=== PATIENT | female | born 1975 | race African-American/Black ===

== ENCOUNTER 2023-02-12 13:03 | Outpatient (REF) | payer OTHER, SELFPAY ==
[2023-02-12 14:35] LABS: Blood Urea Nitrogen 13 mg/dL (9-16); Estimated Glomerular Filt Rate > 60
== END 2023-02-12 13:04 | disposition home or self-care (01) ==
LOC: HO.LAB 13:03
PROVIDERS: PCP Internal Medicine; Visit Provider Psychiatry & Neurology Neurology
DX: G43.909 Migraine, unspecified, not intractable, without status migrainosus (principal); D32.9 Benign neoplasm of meninges, unspecified; I10 Essential (primary) hypertension
CPT/HCPCS: 36415; 82565; 84520

== ENCOUNTER 2023-02-19 15:43 | Outpatient (REF) | payer OTHER, SELFPAY ==
--- NOTE | ~2023-02-19 | CT_ITS ---
EXAMINATION: CT HEAD WITH/WITHOUT CONTRAST CLINICAL INFORMATION: 47-year-old with history of meningioma resection. COMPARISON: None available. TECHNIQUE: Contiguous axial imaging was performed from the skull base to vertex before and after the administration of 85 mL of Omnipaque [address] examination was performed using dose optimization techniques as appropriate, variously including the following: *Automated exposure control *Adjustment of mA and/or kV according to patient size (this includes techniques or standardized protocols for targeted exams where dose is matched to indication/reason for exam; i.e. extremities or head) *Use of iterative reconstruction technique DLP: 1485 mGy-cm FINDINGS: There is evidence of a previous right-sided remote frontal craniotomy with hardware noted in place. There is no definite evidence for recurrent enhancing mass lesion subjacent to the craniotomy site to suggest a recurrent meningioma. The remainder of the intracranial compartment demonstrates no evidence for mass lesions or pathologic intracranial enhancement. No extra-axial fluid collections, space-occupying process or mass effect are identified. Alaniz-white matter interface is preserved. Brain parenchymal attenuation is within normal limits on precontrast and postcontrast images. The ventricular system is within normal limits without hydrocephalus. The visualized orbital soft tissue structures are symmetric and unremarkable. The bony structures are otherwise intact. There is near-complete opacification of the ethmoid complex and some mucosal thickening in the maxillary sinuses bilaterally. Correlate for sinusitis. CT/CT head/brain wo/w IV con IMPRESSION: 1. Status post right frontal craniotomy with no evidence for recurrent meningioma. 2. No acute intracranial process is identified. 3. Paranasal sinus inflammatory changes, as discussed above.
[2023-02-19] MEDS: iohexoL 350 MG/ML 75 ML INFUS..BTL 85 ML IV (16:24)
== END 2023-02-19 15:44 | disposition home or self-care (01) ==
LOC: HO.CT 15:43
PROVIDERS: PCP Internal Medicine; Visit Provider Psychiatry & Neurology Neurology
DX: D32.9 Benign neoplasm of meninges, unspecified (principal)
CPT/HCPCS: 70470; Q9967

== ENCOUNTER 2025-04-08 12:38 | Outpatient (AMB) | payer OTHER, SELFPAY ==
--- NOTE | 2025-04-08 12:57 | A.OFFVIS_ITS ---
Intake Visit Reasons: follow up migraine Allergies acetaminophen (From Tylenol) Allergy (Unknown, Verified 04/06/25 09:45) unknown aspirin Allergy (Unknown, Verified 04/06/25 09:45) Unknown ibuprofen Allergy (Unknown, Verified 04/06/25 09:45) Unknown ketorolac Allergy (Unknown, Verified 04/06/25 09:45) Unknown HPI Comments Details: This is a 49-year-old woman with a history of migraine headaches who is here for her follow-up after a hiatus of almost 2 years. In the last 3 months in right jaw and maxilla and some sinus symptoms. Face is tender and bifrontal headache 3-4 / wk for days. At times nauseated if it is on top of the head. Tries Magnesium 400mg. . Sumatriptan does work starting 1/2 or 1 pill but makes her mentally slow and sleepy with it so she can't take it at work. She is not using her CPAP andhas an appointment to have it adjusted with a new mask. She had right craniotomy for a menigioma removal at [facility] in 2021. Follow up CT scan completed in 06/2024 in [place] with recommendation for annual follow up imaging. No family history of migraines. Will occasionally experience weird headaches, describes as brief pulling and poking sensations. [facility] Medical History (Updated 04/08/25 @ 13:10 by Diego Burrows MD) Hypertension Migraine Review of Systems Const Details: Sleep:? Difficulty getting to sleep?denies.? Difficulty maintaining sleep?denies? .? Urge to move legs?denies.? Teeth grinding?denies.? Shouting or Kicking during sleep?denies.? Abnormal behavior during sleep?denies.? Excessive sleep?denies.? Snoring?denies.? Daytime sleepiness?denies.? ?? General/Constitutional:? Change in appetite?denies.? Chills?denies.? Fatigue?denies.? Fever?denies .? Weight gain?denies.? Weight loss?denies.? ?? Ophthalmologic:? Blurred vision?denies.? Diminished visual acuity?denies.? ?? ENT:? Stuffiness?denies.? Decreased hearing?denies.? Dry mouth?denies.? Ear pain?denies.? Nosebleed?denies.? Ringing in the ears?denies.? Sinus pain?denies .? Sore throat?denies.? Swollen glands?denies.? ?? Endocrine:? Cold intolerance?denies.? Excessive thirst?denies.? Frequent urination? denies.? Heat intolerance?denies.? ?? Respiratory:? Shortness of breath?denies.? Chest pain?denies.? Cough?denies.? ?? Breast:? Breast lump?denies.? Nipple discharge?denies.? ?? Cardiovascular:? Chest pain at rest?denies.? Chest pain with exertion?denies.? Claudication?denies.? Dizziness?denies.? Fluid accumulation in the legs?denies.? Irregular heartbeat?denies.? Palpitations?denies.? ?? Gastrointestinal:? Abdominal pain?denies.? Constipation?denies.? Diarrhea?denies.? Difficulty swallowing?denies.? Heartburn?denies.? Nausea?denies.? Rectal bleeding?denies.? ?? Hematology:? Easy bruising?denies.? Prolonged bleeding?denies.? ?? Genitourinary:? Frequent urination?denies.? Urgency?denies.? Incontinence?denies.? Erectile Dysfunction?denies.? ?? Musculoskeletal:? Neck pain?denies.? Back pain?denies.? Muscle aches?denies.? Painful joints?denies.? Sciatica?denies.? Weakness?denies.? ?? Podiatric:? Difficulty walking?denies.? Foot numbness?denies.? ?? Neurologic:? Difficulty swallowing?denies.? Balance difficulty?denies.? Coordination? normal.? Difficulty speaking?denies.? Dizziness?denies.? Fainting?denies.? Gait abnormality?denies.? Headache?admits.? Loss of strength?denies.? Loss of use of extremity?denies.? Low back pain?denies.? Memory loss?denies.? Seizures?denies.? Tics?denies.? Tingling/Numbness?denies.? Transient loss of vision?denies.? Tremor?denies.? ?? Psychiatric:? Anxiety?denies.? Auditory/visual hallucinations?denies.? Delusions?denies .? Depressed mood?denies.? Stressors?denies.? Substance abuse?denies.? Suicidal thoughts?denies.? ? Reports headache(s) ENT Reports headache(s) Neuro Reports headache(s) Physical Exam Neuro Other: Neurological: ? Abnormal neurological findings:??none.? Mental Status:?alert and oriented X 3,?Normal attention, orientation, memory and affect.? Cranial Nerves:?Pupils are equal, round and reactive to light. Fundoscopy shows normal disc bilaterally. External occular muscles are intact. Visual perez are full, no ptosis. Face is symmetrical, no facial weakness or droop. Facial sensations are normal. Tongue protrudes in midline. Palate elevates symmetrically. Shoulder shrugging is normal..? Motor Examination:?Normal muscle tone, bulk and strength,?No atrophy or fasciculations,?No drift of the extended upper extremities,?Deep tendon reflexes are 2+?,?Plantars are flexor?.? Straight Leg Raising:?90 degrees.? Sensory Exam:?Normal light touch, temperature, pinprick, vibration and joint-position sensations?,?Rhomberg sign is absent.? Coordination:?no ataxia,?no titubation,?gaumve-ud-toge, [id number] test and rapid alternating movements were normal.? Gait Exam:?Within normal limits.? Cerebellar Signs:?[id number]-fw-[id number] and grgu-ux-uarx is normal,?no dysdiadochokinesia?.? Extrapyramidal System:?No tremor, rigidity with normal facial expressions,?No bradykinesia, no bradyphrenia. Normal arm swing and posture. No propulsion or retropulsion.? Speech:?Normal,?no dysphasia or dysarthria..? Mini Mental Status Exam: ? Level of Consciousness:?Alert.? Orientation:?Knows correct year, month, date, day and season,?Knows correct city, county and state. Knows correct location and floor.? Registration:?Able to register 3 objects.? Attention:?Serial 7's performed accurately.? Recall:?Able to recall 3 out of 3 objects.? Language:?Normal spontaneous speech, fluency, repetition,naming, comprehension, reading and writing.? Total Score:?30/30.? General Examination: ? GENERAL APPEARANCE:?normal,?in no acute distress.? HEAD:?normocephalic,?atraumatic.? EYES:?sclera non-icteric,?conjunctiva clear.? EARS:?auditory canal clear,?tympanic membrane intact, clear.? NOSE:?no lesions.? ORAL CAVITY:?gums normal,?mucosa moist,?no lesions.? THROAT:?clear.? Assessment & Plan Assessment & Plan (1) Migraine: Code(s): G43.909 - Migraine, unspecified, not intractable, without status migrainosus Category: Medical (2) Meningioma: Comment: 02/19/23 CT Brain Status post right frontal craniotomy with no evidence for recurrent meningioma.No acute intracranial process is identified.Paranasal sinus inflammatory changes. Code(s): D32.9 - Benign neoplasm of meninges, unspecified Category: Medical (3) Sinusitis chronic, ethmoidal: Code(s): J32.2 - Chronic ethmoidal sinusitis Category: Medical Plan keflex 500mg tid x 10 days and prednisone taper for 7 days. Medications: New prednisone 3 pills pc every morning for 3 days, then 2 pills daily for 3 days, then 1 pill daily for 3 days 18 tabs 0RF cephalexin 500 mg PO TID 30 caps 0RF 10 days Coding Level of Care Code New Pt Level 5 (19486) Diagnoses Migraine G43.909 Meningioma D32.9 Sinusitis chronic, ethmoidal J32.2
== END 2025-04-08 13:17 | disposition home or self-care (01) ==
LOC: HO.HSM 12:39
PROVIDERS: PCP Internal Medicine; Visit Provider Psychiatry & Neurology Neurology
DX: G43.909 Migraine, unspecified, not intractable, without status migrainosus (principal); D32.9 Benign neoplasm of meninges, unspecified; J32.2 Chronic ethmoidal sinusitis
CPT/HCPCS: 99205

== ENCOUNTER → 2025-04-08 12:38 | Outpatient (BNVA) | payer OTHER, SELFPAY | PROVIDERS: PCP Internal Medicine; Visit Provider Psychiatry & Neurology Neurology | DX: G43.909 Migraine, unspecified, not intractable, without status migrainosus (principal); D32.9 Benign neoplasm of meninges, unspecified; J32.2 Chronic ethmoidal sinusitis | CPT/HCPCS: 99202 ==